=== PATIENT | female | born 1935 | race Caucasian/White ===

== ENCOUNTER 2017-02-21 04:39 | Inpatient (IN) | payer MEDICARE, OTHER ==
[2017-02-13 12:55] LABS: BASOPHILS 0.3 %; BASOPHILS ABSOLUTE 0.02 10/3/uL (0.0-0.16); EOSINOPHILS 1.6 %; IMMATURE GRANULOCYTES 0.2 %; IMMATURE GRANULOCYTES ABSOLUTE 0.01 10/3/uL (0.0-0.11); LYMPHOCYTES 24.9 %; MEAN CORPUS HGB CONC 31.8 g/dL (32.0-36.0); MEAN CORPUSCULAR HEMOGLOB 26.4 pg (26.0-34.0); MEAN PLATELET VOLUME 10.9 fL (9.2-13.0); MONOCYTES 4.8 %; MONOCYTES ABSOLUTE 0.31 10/3/uL (0.21-1.20); NEUTROPHILS 68.2 %; NEUTROPHILS ABSOLUTE 4.38 10/3/uL (2.02-8.40); PLATELET COUNT 169 10/3/uL (150-400); RBC DISTRIBUTION WIDTH 14.7 % (12.0-16.0); WHITE BLOOD CELLS 6.4 10/3/uL (4.5-10.5)
[2017-02-13 12:57] LABS: HEMATOCRIT 36.5 % (36.0-48.0); HEMOGLOBIN 11.6 g/dL (12.0-16.0); MANUAL DIFF NO %
[2017-02-13 13:00] LABS: INTERNATIONAL NORMAL RATI 1.1 UNITS (-); PROTIME (NOT ORD) 13.8 SEC (12.0-14.5)
[2017-02-13 13:12] LABS: A/G RATIO 1.1 (0.7-1.9); ALBUMIN 3.6 G/DL (3.5-5.0); ALKALINE PHOSPHATASE 63 U/L (45-117); BUN (BLOOD UREA NITROGEN) 10 MG/DL (6-23); CHLORIDE, SERUM 101 MMOL/L (96-112); CO2 (CARBON DIOXIDE) 27 MMOL/L (24-34); CREATININE 1.08 MG/DL (0.55-1.02); GFR AFRICAN AMERICAN 56 ML/MIN (>=60); GFR NON AFRICAN AMERICAN 48 ML/MIN (>=60); GLOBULIN 3.3 G/DL (2.5-4.1); GLUCOSE, SERUM 153 MG/DL (60-99); POTASSIUM, SERUM 4.6 MMOL/L (3.5-5.3); SGOT(AST) 12 U/L (5-40); SGPT(ALT) 15 U/L (5-65); SODIUM, SERUM 136 MMOL/L (135-148); TOTAL BILIRUBIN 0.5 MG/DL (0-1.2); TOTAL PROTEIN 6.9 G/DL (6.0-8.5)
[2017-02-13 13:39] LABS: ASCORBIC ACID (UR NOT ORDER) NEG (NEG); BILIRUBIN, URINE NEGATIVE (NEG); KETONE, URINE NEGATIVE (NEG); LEUKOCYTE ESTERASE(NOT OR NEG (NEG); WBC (NOT ORDERED) (RFLEX) < 1 (0-5)
--- NOTE | ~2017-02-21 | OP ---
Record Of Operation [facility] [address] [place]. [address] NAME: KAI GEE : 37 STATUS : ADM IN PAT#: [id number] AGE: 82 ADM/REG DATE : 02/21/17 MR#: [id number] REPORT SERV DATE: 02/21/17 DICTATED BY: LIDIA LEE DATE: 02/21/17 REPORT STATUS : Draft TRANSCRIBED BY: MODL DATE: 02/21/17 DATE OF PROCEDURE: 02/21/2017 PREOPERATIVE DIAGNOSIS: Severe left knee degenerative joint disease. POSTOPERATIVE DIAGNOSIS: Severe left knee degenerative joint disease. OPERATION: Left posterior stabilized total knee replacement, cemented. SIDE: Left. SIZE: See chart. ANESTHESIA: See chart. ESTIMATED BLOOD LOSS: About 10 mL. TOURNIQUET TIME: Approximately 1 hour and 10 minutes. COMPLICATIONS: None. SPECIMENS: Articular surfaces. PROCEDURE: The patient was appropriately identified and marked. The operative side agreed with the consent form and it was checked by all members of the surgical team. The patient was taken to the operating room and anesthesia was induced per the anesthesiologist. The patient was carefully transferred to the operating table without incident. The patient received appropriate prophylactic antibiotics and a Newman catheter was placed in the standard sterile technique. The patient was then carefully positioned, padded, prepped and draped in the normal sterile fashion. The operative leg had been appropriately identified and checked by all members of the operating team against the consent form and found to be the correct limb. The patient's lower extremity was then exsanguinated with an Nagi wrap and a tourniquet was inflated to 350 mm/Hg. Sharp dissection was carried out through a straight midline longitudinal incision and electrocautery through the fat. Sharp quad splitting approach was carried out between about the medial 10 percent of the tendon and the lateral 90 percent of the tendon and down around the medial aspect of the patella and then 1 cm medial to the tibial tubercle. The patella was carefully everted and the posterior fat pad was excised and gentle MCL elevation was carried out off the proximal medial tibia subperiosteally. IM guide was placed in the distal femur after using the appropriate drill. The distal femoral cutting guide was held with 2 pins and the distal cut made. Meniscal fragments and the ACL and the PCL were excised with electrocautery, carefully staying anterior to the posterior fat pad. The proximal tibial alignment guide was set appropriately and the proximal tibial cut made. Spacer block verified full extension with excellent mediolateral balance. Sizing guide was used to place 2 drill holes in the distal femur and the four-in-one cutting block was then placed, impacted and checked Record Of Operation [facility] [address] [place]. [address] NAME: KAI GEE : 37 STATUS : ADM IN PAT#: [id number] AGE: 82 ADM/REG DATE : 02/21/17 MR#: [id number] REPORT SERV DATE: 02/21/17 DICTATED BY: LIDIA LEE DATE: 02/21/17 REPORT STATUS : Draft TRANSCRIBED BY: MODL DATE: 02/21/17 to be sure it would not notch with an kwame wing and it was held with 2 pins. The anterior cut, posterior cut, anterior chamfer and posterior chamfer cuts were made. The pins were removed and the block was removed. A posterior release was carried out with a curved 3/4 inch osteotome staying right on the bone posteriorly. The box-cut guide was then placed, impacted and held with 2 pins and a reciprocating saw was used to cut out the box. With the trial components in place, there was excellent medial/lateral balance. The patella was then measured with a caliper, cut first with an oscillating saw and then reamed with a patella reamer. With the trial patella in place, there was excellent patellar tracking. Rotation was marked on the tibia and the tibia prepared with a drill and stamp chisel. All surfaces were then copiously irrigated with pulsatile lavage, carefully dried and then vacuum-mixed cement was pressurized with a cement gun in a doughy phase. The tibial component was placed, impacted and excess cement was removed. The cement was then pressurized in the femur and placed on the posterior runners of the femoral component, which was placed, impacted and excess cement removed and the knee was brought out into extension on a trial spacer. The cement was then pressurized in the patella. Patellar component was then placed, clamped and excess cement was removed. Once all cement was hardened, the knee was taken through range of motion. Further extruded cement was removed with a small osteotome. Then based on the trial inserts, we decided on the actual insert, which was placed in the standard fashion and held with a locking mechanism. The knee was then copiously irrigated and then closed in a layered fashion over a medium Hemovac drain superolaterally with interrupted #1 in the deep fascia, 2-0 subcutaneous and gianni in the skin. The wounds were dressed sterilely and the tourniquet was deflated. The patient was then awakened and taken to the postanesthesia care unit without incident. All counts were correct at the end of the case. FAITH/ENIO Sasha Lee M.D. / [id number] CC: Sasha Lee M.D.
[~2017-02-21 04:39] MED LIST: AVANDIA4 PO; BENTYL10 PO; C5; DCN100 PO; ERY-TAB250 MG PO; ERYTHROCIN250 MG PO; FESO4 PO; GLUCOTRO10 PO; GLUCPH PO; JANUVIA100 MG PO; LEVOTHROID175 MCG PO; LEVOTHYROXIN175 MCG PO; MVI PO; NEUR100 PO; NEXIUM40 PO; NORCO1 TA1 PO; NORCO1 TA2 PO; T PO
[2017-02-22 04:45] LABS: HEMATOCRIT 26.4 % (36.0-48.0); HEMOGLOBIN 8.2 g/dL (12.0-16.0)
[2017-02-22 04:48] LABS: INTERNATIONAL NORMAL RATI 1.2 UNITS (-); PROTIME (NOT ORD) 15.1 SEC (12.0-14.5)
[2017-02-22 04:59] LABS: BUN (BLOOD UREA NITROGEN) 12 MG/DL (6-23); CALCIUM, SERUM 8.4 MG/DL (8.5-10.4); CHLORIDE, SERUM 104 MMOL/L (96-112); CO2 (CARBON DIOXIDE) 28 MMOL/L (24-34); CREATININE 0.89 MG/DL (0.55-1.02); GFR AFRICAN AMERICAN 70 ML/MIN (>=60); GFR NON AFRICAN AMERICAN 61 ML/MIN (>=60); GLUCOSE, SERUM 148 MG/DL (60-99); POTASSIUM, SERUM 4.1 MMOL/L (3.5-5.3); SODIUM, SERUM 139 MMOL/L (135-148)
[2017-02-23 05:19] LABS: HEMOGLOBIN 7.2 g/dL (12.0-16.0)
[2017-02-23 05:24] LABS: INTERNATIONAL NORMAL RATI 1.2 UNITS (-); PROTIME (NOT ORD) 14.9 SEC (12.0-14.5)
[2017-02-23 05:25] LABS: HEMATOCRIT 22.1 % (36.0-48.0)
[2017-02-23] MEDS ORDERED: C5 (09:14)
[2017-06-21] MEDS ORDERED: PEP20 PO (10:28)
== END 2017-02-23 11:09 | disposition home or self-care (01) | DRG 470 ==
LOC: SDC/OF 04:39 → 3SO 10:06
PROVIDERS: Specialist
PROC: 0SRD0J9 Replacement of Left Knee Joint with Synthetic Substitute, Cemented, Open Approach (ICD-10-PCS; principal; 2017-02-21 06:30)
DX: M17.12 Unilateral primary osteoarthritis, left knee (principal); E11.9 Type 2 diabetes mellitus without complications; D62 Acute posthemorrhagic anemia; E03.9 Hypothyroidism, unspecified; K21.9 Gastro-esophageal reflux disease without esophagitis
CPT/HCPCS: 80048; 80053; 81001; 82962; 85014; 85018; 85025; 85610; 87641; 88230; 88245; 88305; 88311; 93005; 97110-GP; 97116-GP; 97161-GP; 97165-GO; A9270-GY; C1776; G8987-CJ-GO; G8988-CJ-GO; G8989-CJ-GO; J0690; J1170; J1885; J2250; J2274; J2405; J2795; J3010